=== PATIENT | male | born 1985 | race Two or more races ===

== ENCOUNTER 2024-04-26 15:27 | Emergency (ER) | payer MEDICAID, OTHER ==
[~2024-04-26] VITALS: Ht 167.6 cm; Wt 79.4 kg
[2024-04-26 16:22] VITALS: BP 124/70; TEMP 98.1; O2SAT 99
== END 2024-04-26 16:22 | disposition home or self-care (01) ==
LOC: ER 15:40
DX: M79.602 Pain in left arm (principal); M79.605 Pain in left leg; F17.200 Nicotine dependence, unspecified, uncomplicated; W01.198A Fall on same level from slipping, tripping and stumbling with subsequent striking against other object, initial encounter; Y93.89 Activity, other specified; Y92.098 Other place in other non-institutional residence as the place of occurrence of the external cause; Y99.8 Other external cause status